=== PATIENT | male | born 1965 | race Caucasian/White ===

== ENCOUNTER 2018-01-29 14:53 | Emergency (ER) | payer OTHER ==
[~2018-01-29] VITALS: Ht 188 cm; Wt 99.8 kg
--- NOTE | 2018-01-29 15:00 | NUR ---
PRESENTS TO ER C/O DIZZINESS/ LIGHTHEADED X2 HRS . HAD GLF, DENIES LOSS OF CONSCIOUSNESS. A/OX 4. BREATHING EVEN AND UNLABORED. NO SOB, NAD, VITALS STABLE. NO NEURO DEFICITS. SAFETY AND COMFORT MEASURES IN PLACE. AWAITING MD ORDERS.
--- NOTE | 2018-01-29 15:30 | NUR ---
MARKETING INFORMATION COORDINATOR AT BEDSIDE FOR BLOOD DRAW.
[2018-01-29 15:36] LABS: BASOPHILS # (AUTO) 0.1 /CMM (0.0-0.2); BASOPHILS % (AUTO) 0.8 % (0.0-2.0); EOSINOPHILS % (AUTO) 0.6 % (0.0-6.0); HEMATOCRIT 44 % (39-51); HEMOGLOBIN 14.8 g/dL (13.5-17.5); LYMPHOCYTES # (AUTO) 3.2 /CMM (0.8-4.8); LYMPHOCYTES % (AUTO) 44.2 % (20.0-44.0); MEAN CORPUSCULAR HEMOGLOBIN 32 PG (26.0-33.0); MEAN CORPUSCULAR HGB CONC 34 g/dl (31.0-36.0); MEAN CORPUSCULAR VOLUME 94 fL (80-96); MONOCYTES # (AUTO) 0.6 /CMM (0.1-1.30); MONOCYTES % (AUTO) 8.4 % (2.0-12.0); NEUTROPHILS # (AUTO) 3.2 /CMM (1.8-8.9); PLATELET COUNT (AUTO) 269 /CMM (150-450); RDW COEFFICIENT OF VARIATION 12.4 (11.5-15.0); RED BLOOD CELL COUNT(AUTO) 4.64 MIL/uL (4.5-6.0); WHITE BLOOD COUNT (AUTO) 7.1 K/uL (4.3-11.0)
[2018-01-29 15:52] LABS: CALCIUM, SERUM 9.1 mg/dL (8.5-10.1); CREATININE 1.5 mg/dL (0.6-1.3); POTASSIUM 4.7 mmol/L (3.5-5.1)
[2018-01-29 16:01] VITALS: BP 132/74
--- NOTE | 2018-01-29 16:02 | NUR ---
Patient discharged to home in stable condition. Written and verbal after care instructions given. Patient verbalizes understanding of instruction.
== END 2018-01-29 16:02 | disposition home or self-care (01) ==
LOC: ER 14:55
DX: R42 Dizziness and giddiness (principal); F41.9 Anxiety disorder, unspecified; M10.9 Gout, unspecified; F31.9 Bipolar disorder, unspecified; F10.10 Alcohol abuse, uncomplicated; Z91.013 Allergy to seafood
CPT/HCPCS: 36415; 80048; 85025; 93005; 99285; A4606; Z7610

== ENCOUNTER 2018-06-09 17:29 | Emergency (ER) | payer OTHER ==
[~2018-06-09] VITALS: Ht 188 cm; Wt 100.2 kg
[2018-06-09 18:05] VITALS: BP 123/48
--- NOTE | 2018-06-09 18:05 | NUR ---
PT AMBULATORY TO ER BED 10 C/O R FOOT PAIN AFTER DROPPING WEIGHTS ON IT LAAST NIGHT. PT DENIES ANY OTHER COMPLAINTS. STEADY GAIT AND IS WEARING A SHOE. AWAITING MD WEBER.
--- NOTE | 2018-06-09 18:07 | NUR ---
PARTH TORIBIO AT BEDSIDE FOR EVAL.
--- NOTE | 2018-06-09 18:32 | NUR ---
RADIOLOGY AT BEDSIDE FOR R FOOT XRAY.
== END 2018-06-09 19:20 | disposition home or self-care (01) ==
LOC: ER 17:34
DX: S90.31XA Contusion of right foot, initial encounter (principal); M10.9 Gout, unspecified; F10.10 Alcohol abuse, uncomplicated; F31.9 Bipolar disorder, unspecified; Z91.013 Allergy to seafood; Y90.9 Presence of alcohol in blood, level not specified; W20.8XXA Other cause of strike by thrown, projected or falling object, initial encounter; Y93.B9 Activity, other involving muscle strengthening exercises; Y92.39 Other specified sports and athletic area as the place of occurrence of the external cause; Y99.8 Other external cause status
CPT/HCPCS: 73630; 99284; A4606; Z7610

== ENCOUNTER → 2018-06-21 | Emergency (ER) | payer OTHER ==
[~2018-06-21] VITALS: Ht 188 cm; Wt 103.4 kg
--- NOTE | 2018-06-21 10:02 | NUR ---
FROM HOME WITH CC OF RIGHT SHOULDER PAIN, FELT IT POPPED WHILE DOING BENCH PRESSES , VSS , WILL CONTINUE TO MONITOR
--- NOTE | 2018-06-21 10:26 | NUR ---
Patient discharged to home in stable condition. Written and verbal after care instructions given. Patient verbalizes understanding of instruction.
[2018-06-21 10:27] VITALS: BP 120/55
== END ==
LOC: ER 09:50
DX: S46.911A Strain of unspecified muscle, fascia and tendon at shoulder and upper arm level, right arm, initial encounter (principal); M10.9 Gout, unspecified; F31.9 Bipolar disorder, unspecified; F10.10 Alcohol abuse, uncomplicated; Y90.9 Presence of alcohol in blood, level not specified; Z91.013 Allergy to seafood; W19.XXXA Unspecified fall, initial encounter; Y93.B9 Activity, other involving muscle strengthening exercises; Y92.89 Other specified places as the place of occurrence of the external cause; Y99.8 Other external cause status
CPT/HCPCS: 99282; A4606; Z7610

== ENCOUNTER 2018-07-09 16:21 | Emergency (ER) | payer OTHER ==
[~2018-07-09] VITALS: Ht 188 cm; Wt 103.4 kg
[2018-07-09 16:29] VITALS: BP 109/74
== END 2018-07-09 17:48 | disposition home or self-care (01) ==
LOC: ER 16:24
DX: S93.402A Sprain of unspecified ligament of left ankle, initial encounter (principal); S86.012A Strain of left Achilles tendon, initial encounter; F31.9 Bipolar disorder, unspecified; F10.10 Alcohol abuse, uncomplicated; Y90.9 Presence of alcohol in blood, level not specified; Z91.013 Allergy to seafood; W22.8XXA Striking against or struck by other objects, initial encounter; Y93.02 Activity, running; Y92.89 Other specified places as the place of occurrence of the external cause; Y99.8 Other external cause status
CPT/HCPCS: 73610-TC; A4606; Z7610

== ENCOUNTER 2018-08-14 08:02 | Emergency (ER) | payer OTHER ==
[~2018-08-14] VITALS: Ht 188 cm; Wt 103.4 kg
[2018-08-14 08:02] VITALS: BP 113/69
== END 2018-08-14 08:25 | disposition home or self-care (01) ==
LOC: ER 08:04
DX: M79.18 Myalgia, other site (principal); M10.9 Gout, unspecified; F32.9 Major depressive disorder, single episode, unspecified; F41.9 Anxiety disorder, unspecified; Z91.013 Allergy to seafood
CPT/HCPCS: 99282; A4606; Z7610

== ENCOUNTER 2018-10-10 09:08 | Emergency (ER) | payer OTHER ==
[~2018-10-10] VITALS: Ht 188 cm; Wt 102.1 kg
[2018-10-10 09:15] VITALS: BP 123/77
== END 2018-10-10 10:30 | disposition home or self-care (01) ==
LOC: ER 09:20
DX: M25.562 Pain in left knee (principal); F31.9 Bipolar disorder, unspecified; F10.10 Alcohol abuse, uncomplicated; Z91.013 Allergy to seafood; Y90.9 Presence of alcohol in blood, level not specified
CPT/HCPCS: 73564-TC; A4606; Z7610

== ENCOUNTER 2019-04-07 14:21 | Emergency (ER) | payer OTHER ==
[~2019-04-07] VITALS: Ht 188 cm; Wt 98.0 kg
--- NOTE | 2019-04-07 15:10 | NUR ---
CAME IN FOR BACK PAIN x 3 DAYS. TO ER BED 10, HOOKED TO MONITOR, PROVIDED W WARM BLANKET, AWAITING MD WEBER
--- NOTE | 2019-04-07 15:27 | NUR ---
MALU HERRING AT BEDSIDE
[2019-04-07] MEDS ORDERED: CYCLOBENZAPRINE 10 MG TABLET ONE (15:31)
[2019-04-07] MEDS: CYCLOBENZAPRINE 10 MG TABLET PO ONE (15:32)
--- NOTE | 2019-04-07 17:17 | NUR ---
Patient discharged to home in stable condition. Written and verbal after care instructions given. Patient verbalizes understanding of instruction.
[2019-04-07 17:18] VITALS: BP 128/84
== END 2019-04-07 17:21 | disposition home or self-care (01) ==
LOC: ER 14:21
DX: M54.5 Low back pain (principal); F31.9 Bipolar disorder, unspecified; F41.9 Anxiety disorder, unspecified; F10.10 Alcohol abuse, uncomplicated; Y90.9 Presence of alcohol in blood, level not specified; Z91.013 Allergy to seafood
CPT/HCPCS: 72110-TC